=== PATIENT | female | born 1970 | race African-American/Black ===

== ENCOUNTER 2018-03-05 16:20 | Outpatient (CLI) | payer OTHER | END 2018-03-05 16:21 | disposition home or self-care (01) | LOC: BICMAMMO 16:20 | PROVIDERS: ATTEND Family Medicine | DX: Z12.31 Encounter for screening mammogram for malignant neoplasm of breast (principal); Z80.3 Family history of malignant neoplasm of breast | CPT/HCPCS: 77063; 77067 ==

== ENCOUNTER 2018-03-10 15:50 | Outpatient (CLI) | payer OTHER ==
[2018-03-10 16:21] LABS: #Basophils 0.1 thou/uL (0.0-0.2); #Eosinphils 0.1 thou/uL (0.0-0.7); #Lymphocytes 3.1 thou/uL (1.20-3.40); #Monocytes 0.5 thou/uL (0.11-0.59); #Neutrophils 3.6 thou/uL (1.40-6.50); %Basophils 0.9 % (0.0-1.0); %Lymphocytes 42.3 % (21.0-51.0); %Monocytes 6.3 % (0.0-10.0); %Neutrophils 49.5 % (42.0-75.0); Hemoglobin 12.2 g/dL (12.0-16.0); Mean Corpuscular Hemoglobin 30.9 pg (27.0-31.0); Mean Corpuscular Volume 96.5 fl (81.0-99.0); Mean Platelet Volume 6.2 fL (7.4-10.4); Platelet Count 343 thou/uL (130-400); RBC Distribution Width 12.4 % (11.5-14.5); Red Blood Cell (RBC) Count 3.94 mill/uL (4.20-5.40); White Blood Cell (WBC) Count 7.3 thou/uL (4.8-10.8)
[2018-03-10 16:42] LABS: Anion Gap 10 mmol/L (10-20); BUN (Urea Nitrogen) 11 mg/dL (7.0-18.7); Calc. Creatinine Clearance 0 mL/min (70-130); Calcium 9.6 mg/dL (7.8-10.44); Carbon Dioxide 32 mmol/L (22-29); Chloride 100 mmol/L (98-107); Estimated GFR-MDRD Greater than 90; Glucose 108 mg/dL (70-105); Potassium 3.9 mmol/L (3.5-5.1); Sodium 138 mmol/L (136-145)
== END 2018-03-10 15:51 | disposition home or self-care (01) ==
LOC: LABBT 15:50
PROVIDERS: ATTEND Surgery
DX: Z01.818 Encounter for other preprocedural examination (principal); C20 Malignant neoplasm of rectum
CPT/HCPCS: 80048; 85025

== ENCOUNTER 2018-03-12 11:15 | Outpatient (CLI) | payer OTHER ==
--- NOTE | 2018-03-12 13:33 | PET ---
RADIONUCLIDE PET SCAN WITH CT ATTENUATION CORRECTION: HISTORY: Rectal cancer. Initial staging. FINDINGS: No comparison available. There is physiologic uptake of radiotracer throughout the enteric system and along each urinary tract . No abnormal areas of uptake are seen within the liver. Nondiagnostic CT attenuation correction does show gallbladder to be surgically absent. 0.3 cm calculus is present within a nondilated erin at th e superior pole right kidney. Lobular fluid density lesion just inferior to the left renal vein does not have an aggressive appearance and does not show hypermetabolic activity. Scattered diverticula arise from the colon without adjacent inflammation. No abnormal uptake is seen along the rectal wall with minimal bowel material apparent. IMPRESSION: 1. No scintigraphic evidence of metastatic disease. Primary rectal lesion is not apparent scintigrap hically. 2. Small, nonobstructing right renal calculus. 3. Mild diverticulosis. No evidence of diverticulitis. POS: [facility]
== END 2018-03-12 11:16 | disposition home or self-care (01) ==
LOC: PET 11:15
PROVIDERS: ATTEND Internal Medicine Hematology & Oncology
DX: C20 Malignant neoplasm of rectum (principal); K57.90 Diverticulosis of intestine, part unspecified, without perforation or abscess without bleeding; N20.0 Calculus of kidney
CPT/HCPCS: 78815; A9552

== ENCOUNTER → 2018-03-12 | Day surgery (SDC) | payer OTHER ==
[2018-03-10 16:06] VITALS: BMI 52.8
[~2018-03-12] MED LIST: Bupivacaine/Epinephrine 0.25% 30 ML VIAL ONE; Clindamycin/D5W 900 mg/50 ml Premix Bag ONE; Dexamethasone 20 MG/5 ML VIAL ONE; Fentanyl 100 MCG/2 ML VIAL ONE; Levofloxacin 500 mg/D5W 100 ml Premix Bag ONE; Lidocaine 1% PF 5 ML VIAL ONE; Lidocaine 2% 10 ML INJ ONE; Midazolam HCl 2 mg/2 ml Vial ONE; PHENYLEPHRINE-NS 100 MCG/ML 10 ML SYRINGE ONE; PROPOFOL 200 MG/20 ML VIAL ONE
--- NOTE | 2018-03-12 16:30 | PDOC.OP ---
Operative Note - Operative Note Operative Note: PROCEDURE: Left internal jugular MediPort placement with ultrasound and fluoroscopic guidance SURGEON: Lindsay Espinoza M.D. DATE OF PROCEDURE: 03/12/2018 PREOPERATIVE DIAGNOSIS: Squamous cell carcinoma of the rectum POSTOPERATIVE DIAGNOSIS: Squamous cell carcinoma of the rectum HISTORY: Patient is diagnosed with squamous cell rectal cancer. Chemotherapy has been recommended and the oncologist has requested MediPort placement for this. OPERATIVE PROCEDURE IN DETAIL: After informed consent was obtained and appropriate preoperative antibiotics were administered, the patient was taken to the operating room and placed in supine position and monitored anesthesia care was administered. The patient was then placed in Trendelenburg position and the subclavian vein attempted to be accessed by the standard approach. However, no flow was obtained. The decision was made to place the Mediport in the left internal jugular position. An ultrasound probe was sterilely draped and used to identify the patent compressible internal jugular vein. This was accessed easily on the first attempt under direct ultrasound guidance with excellent flow of dark venous non-pulsatile blood. A wire threaded easily and was confirmed to be in the superior vena cava by fluoroscopy. Additional local anesthesia was infused to the skin and subcutaneous of the chest and neck. The skin incision was made and a subcutaneous pocket developed inferiorly. A Mediport was obtained and confirmed to fit in the subcutaneous pocket. This was secured inferiorly to the pectoralis fascia with a Prolene suture, which was clamped, but not tied. The tubing was then tunneled from the port site to the left IJ access site. The dilator and sheath were then placed over the wire and the dilator and wire removed leaving the sheath in place. The clamped MediPort tubing was tunneled through the sheath, which was then split and removed leaving the MediPort tubing in place. The tubing was adjusted until the tip was confirmed by fluoroscopy to be in the superior vena cava just above the atrium. The tubing was clamped at the skin level and cut and the tubing secured to the port, which was then placed in the subcutaneous pocket. The previously placed suture was secured and two additional sutures were placed to fix the port in place within the pocket. The port was aspirated with the Berg needle and had excellent flow of dark venous non-pulsatile blood and easily flushed without resistance. The subcutaneous tissues were closed with a running Monocryl suture, following which the skin was closed with a running subcuticular Monocryl suture. The right IJ access site was also closed with Monocryl suture. Dermabond dressings were placed and the hub was again accessed through the skin and confirmed to easily aspirate and easily flush. The course of the catheter was confirmed by fluoroscopy to be smooth with the tip appropriately located in the superior vena cava. The patient was taken her back to the day stay unit in good condition. Estimated blood loss was minimal. There were no complications. There were no specimens.
--- NOTE | 2018-03-12 16:31 | RAD ---
CHEST ONE VIEW: 03/12/18 HISTORY: Mediport placement. FINDINGS: The cardiac silhouette is magnified by projection. Pulmonary vasculature are unremarkable. Mediastinu m is midline. Tip of a left internal jugular central venous catheter overlies the midline at the expe cted location of the left brachiocephalic vein. No evidence of pneumothorax. IMPRESSION: Left subclavian Mediport is in good radiographic position. POS: [facility]
== END ==
LOC: SDC 13:06
PROVIDERS: ATTEND Surgery
PROC: 02HV33Z Insertion of Infusion Device into Superior Vena Cava, Percutaneous Approach (ICD-10-PCS; principal; 2018-03-12)
PROC: B518ZZA Fluoroscopy of Superior Vena Cava, Guidance (ICD-10-PCS; principal; 2018-03-12)
DX: C20 Malignant neoplasm of rectum (principal); E03.9 Hypothyroidism, unspecified; F32.9 Major depressive disorder, single episode, unspecified; Z88.0 Allergy status to penicillin; Z88.8 Allergy status to other drugs, medicaments and biological substances; Z88.5 Allergy status to narcotic agent; Z91.040 Latex allergy status; Z79.899 Other long term (current) drug therapy; Z98.890 Other specified postprocedural states
CPT/HCPCS: 71045; C1788; J1100; J1642; J1956; J2001; J2250; J2704; J3010; J3490

== ENCOUNTER 2018-04-29 12:02 | Inpatient (IN) | payer OTHER ==
[2018-04-29] MEDS ORDERED: Acetaminophen 500 MG TAB ONE ×2 (12:19→16:27)
[2018-04-29 13:05] LABS: Hemoglobin 9.3 g/dL (12.0-16.0); Mean Corpuscular HGB CONC 33.4 g/dL (32.0-36.0); Mean Corpuscular Hemoglobin 32.9 pg (27.0-31.0); Mean Corpuscular Volume 98.7 fL (78.0-98.0); Mean Platelet Volume 6.9 fL (7.4-10.4); PLT Morphology Comment Appears Decreased; Platelet Count 55 thou/uL (130-400); RBC Distribution Width 14.7 % (11.5-14.5); RBC Morphology Normal; Red Blood Cell (RBC) Count 2.82 mill/uL (4.20-5.40); White Blood Cell (WBC) Count 0.4 thou/uL (4.8-10.8)
[2018-04-29 13:11] LABS: ALT (SGPT) 28 U/L (8-55); AST (SGOT) 26 U/L (5-34); Albumin 3.9 g/dL (3.5-5.0); Alkaline Phosphatase 89 U/L (40-150); Anion Gap 14 mmol/L (10-20); BUN (Urea Nitrogen) 9 mg/dL (7.0-18.7); Bilirubin, Total 1.8 mg/dL (0.2-1.2); Calc. Creatinine Clearance 0 mL/min (70-130); Calcium 9.4 mg/dL (7.8-10.44); Carbon Dioxide 27 mmol/L (22-29); Chloride 100 mmol/L (98-107); Estimated GFR-MDRD Greater than 90; Globulin 3.4 g/dL (2.4-3.5); Glucose 157 mg/dL (70-105); Potassium 3.8 mmol/L (3.5-5.1); Protein, Total 7.3 g/dL (6.0-8.3); Sodium 137 mmol/L (136-145)
--- NOTE | 2018-04-29 13:17 | RAD ---
PORTABLE CHEST: History: Fever. FINDINGS: The lungs are clear. No infiltrate. Heart and mediastinum unremarkable. A Mediport catheter has tip o verlying the left brachiocephalic near the SVT junction. IMPRESSION: No acute abnormality. POS: [facility]
[2018-04-29] MEDS ORDERED: Cefepime 2 GM in Sodium Chloride 0.9% 100 ML IVPB SCH (13:45)
[2018-04-29 13:54] LABS: Bilirubin Negative (Negative); Blood, Urine Large (Negative); Clarity CLEAR (Clear); Glucose, Urine (Dipstick) Negative (Negative); Leukocyte Small (Negative); Protein, Urine (Dipstick) Trace mg/dL (Neg-Trace); Specific Gravity, Urine 1.009 (1.002-1.036); pH, Urine 7.5 (5.0-9.0)
[2018-04-29 13:57] LABS: Bacteria/HPF None Seen HPF (None Seen); Hyaline Casts/LPF 0-3 HYALINE CAST LPF (0-3 Hyaline); Pathc Cast-AUWi Flag 0.43 (0-2.49); Squamous Epithelial None Seen HPF (0-3)
[2018-04-29] MEDS ORDERED: Promethazine HCl 25 MG/ML VIAL ONE (14:08)
[2018-04-29 14:13] LABS: Nitrite Unable to Interpret (Negative); RBC/HPF GREATER THAN 50-TNTC HPF (0-3)
--- NOTE | 2018-04-29 15:10 | PDOC.FPRHP ---
- History of Present Illness Chief Complaint: fever History of Present Illness: 47/F pt presents with complaint of fever, body aches, chills, nausea, diarrhea, abdominal pain, and dysuria since this morning. PT has a hx of colorectal cancer , recently had radiation on Friday (Was suppose to have 2 more radiation doses but due to pain was not able to undergo treatment), last chemo was 04/20/18 ( four days of treatment). Pt denies blood in stool, vomiting, back pain but reports a lower back "soreness". States she has had some vaginal bleeding and blood in her urine; last radiation was performed transvaginally which required a vaginal dilator. Patient reports fever of 99.6 last night. Has been continuing wound care treatments at home. Has been concerned that due to loose stools areas near her perirectal areas could be infected. Last night she also noticed abdominal pain around her belly button. This morning did not have much of an appetite. Took a shower noticed severe chills and took her temp which was 101. Other associated symptoms have included dysuria for the past 2 wks or more. Last week was placed on cipro for 7 days. Dysuria has unfortunately continued. Increase nocturia. Reports bloody urine since Friday. Patient unsure if specific to urine or vaginal bleeding. Body aches for the past 2 days. Noticed numbness and tingling to lower extremities over the last week as well, R>L. - Allergies/Adverse Reactions Allergies Allergy/AdvReac Type Severity Reaction Status Date / Time acetaminophen [From [place]] Allergy Intermediate ITCHING Verified 03/10/18 16:00 hydrocodone [From [place]] Allergy Intermediate ITCHING Verified 03/10/18 16:00 latex Allergy Intermediate ITCHING Verified 03/10/18 16:00 Penicillins Allergy Rash Verified 03/10/18 16:00 - Home Medications Medication Instructions Recorded Confirmed Type Cholecalciferol (Vitamin D3) 5,000 unit PO QAM 01/20/18 04/29/18 History [Vitamin D3] DULoxetine [Cymbalta] 60 mg PO HS 01/20/18 04/29/18 History Levothyroxine Sodium [Synthroid] 88 mcg PO QAM 01/20/18 04/29/18 History Tolterodine Tartrate [Detrol LA] 4 mg PO HS 01/20/18 04/29/18 History Ubidecarenone/Vitamin E Mixed 1 each PO HS 01/20/18 04/29/18 History [Qzs28-Oma E 200 mg-20 Unit Sfg] Calcium Carbonate [Calcium] 600 mg PO DAILY 03/10/18 04/29/18 History Lactobacillus Combo No.10 1 capsule PO DAILY 03/10/18 04/29/18 History [Probiotic] Melatonin 10 mg PO HS PRN 04/29/18 04/29/18 History - History PMHx: Depression, Incontinence, Hypothyroidism, Iron def anemia, Squamous cell carcinoma of the rectum, Cancer related pain, PSHx: Hysto 2003 (Fibroid uterus), Zoe 2006, Mediport 04/2018, section x2 FHx: Aunt with Breast Cancer Social: Denies tobacco, alcohol, and drug use. Lives with family. . Works at [employer] but recently retired on Friday. - Review of Systems General: reports: fever/chills, weight/appetite/sleep changes, fatigue Eyes: denies: eye pain, vision changes ENT: denies: nasal congestion, rhinorrhea Respiratory: denies: cough, congestion, shortness of breath, exercise intolerance Cardiovascular: denies: chest pain, palpitation, edema, paroxysmal nocturnal dyspnea, orthopnea Gastrointestinal: reports: nausea, diarrhea, abdominal pain. denies: vomiting, constipation, GI bleeding Genitourinary: reports: incontinence, dysuria, discharge (bloody) Skin: reports: other (radiation wounds to pelvis) Musculoskeletal: reports: swelling. denies: pain, tenderness, stiffness, arthritis/arthralgias Neurological: reports: numbness. denies: syncope, seizure, weakness Psychological: reports: anxiety, depression - Vital signs BP: 110/46 HR: 111 RR: 23 Tmax: 101.6 Pox: 98% on RA Wt: 122 kg - Physical Exam Constitutional: NAD, awake, alert and oriented, other (obese) HEENT: normocephalic and atraumatic, PERRLA, EOMI, conjunctiva clear, no scleral icterus, grossly normal hearing, other (mucous membranes dry) Neck: supple, trachea midline Heart: RRR, normal S1/S2, other (2/6 systolic murmur) Lungs: CTAB, no respiratory distress, good air movement, no rales/rhonchi, no wheezing, no retractions Abdomen: soft, non-tender, bowel sounds present, no masses/distention Musculoskeletal: normal structure, normal tone, ROM grossly normal Neurological: no focal deficit, CN II-XII intact, other (subjective decreased sensation RLE compared to left) Skin: no jaundice, other (entensive radiation related skin breakdown below pannus and in suprapubic and vulvar areas) Heme/Lymphatic: no unusual bruising or bleeding, no purpura Psychiatric: normal mood and affect, good judgment and insight, intact recent and remote memory FMR H&P: Results - Labs Result Diagrams: 04/29/18 12:46 04/29/18 12:46 Lab results: WBC 0.4 thou/uL (4.8-10.8) L* 04/29/18 12:46 Hgb 9.3 g/dL (12.0-16.0) L 04/29/18 12:46 Hct 27.8 % (36.0-47.0) L 04/29/18 12:46 MCV 98.7 fL (78.0-98.0) H 04/29/18 12:46 Plt Count 55 thou/uL (130-400) L 04/29/18 12:46 Sodium 137 mmol/L (136-145) 04/29/18 12:46 Potassium 3.8 mmol/L (3.5-5.1) 04/29/18 12:46 Chloride 100 mmol/L (98-107) 04/29/18 12:46 Carbon Dioxide 27 mmol/L (22-29) 04/29/18 12:46 BUN 9 mg/dL (7.0-18.7) 04/29/18 12:46 Creatinine 0.79 mg/dL (0.6-1.1) 04/29/18 12:46 Glucose 157 mg/dL (70-105) H 04/29/18 12:46 Lactic Acid 2.1 mmol/L (0.5-2.2) 04/29/18 12:46 Calcium 9.4 mg/dL (7.8-10.44) 04/29/18 12:46 Total Bilirubin 1.8 mg/dL (0.2-1.2) H 04/29/18 12:46 AST 26 U/L (5-34) 04/29/18 12:46 ALT 28 U/L (8-55) 04/29/18 12:46 Alkaline Phosphatase 89 U/L (40-150) 04/29/18 12:46 B-Natriuretic Peptide 14.2 pg/mL (0-100) 04/29/18 12:46 Serum Total Protein 7.3 g/dL (6.0-8.3) 04/29/18 12:46 Albumin 3.9 g/dL (3.5-5.0) 04/29/18 12:46 Urine Ketones Negative mg/dL (Negative) 04/29/18 13:25 Urine Blood Large (Negative) H 04/29/18 13:25 Urine Nitrite Unable to Interpret (Negative) 04/29/18 13:25 Ur Leukocyte Esterase Small (Negative) H 04/29/18 13:25 Urine RBC GREATER THAN 50-TNTC HPF (0-3) H 04/29/18 13:25 Urine WBC 7-10 HPF (0-3) H 04/29/18 13:25 Ur Squamous Epith Cells None Seen HPF (0-3) 04/29/18 13:25 Urine Bacteria None Seen HPF (None Seen) 04/29/18 13:25 FMR H&P: A/P - Problem List (1) Chemotherapy induced neutropenia Current Visit: Yes Status: Acute Priority: High Code(s): D70.1 - AGRANULOCYTOSIS SECONDARY TO CANCER CHEMOTHERAPY; T45.1X5A - ADVERSE EFFECT OF ANTINEOPLASTIC AND IMMUNOSUP DRUGS, INIT (2) Sepsis Current Visit: Yes Status: Acute Code(s): A41.9 - SEPSIS, UNSPECIFIED ORGANISM (3) Urinary tract infection Current Visit: Yes Status: Acute Qualifiers: Urinary tract infection type: acute cystitis Hematuria presence: with hematuria Qualified Code(s): N30.01 - Acute cystitis with hematuria (4) Squamous cell carcinoma of rectum Current Visit: Yes Status: Acute Priority: High Code(s): C20 - MALIGNANT NEOPLASM OF RECTUM (5) Thrombocytopenia Current Visit: Yes Status: Acute Priority: High Code(s): D69.6 - THROMBOCYTOPENIA, UNSPECIFIED (6) Hypothyroidism Current Visit: Yes Status: Acute Code(s): E03.9 - HYPOTHYROIDISM, UNSPECIFIED Qualifiers: Hypothyroidism type: unspecified Qualified Code(s): E03.9 - Hypothyroidism , unspecified (7) Hyperbilirubinemia Current Visit: Yes Status: Acute Code(s): E80.6 - OTHER DISORDERS OF BILIRUBIN METABOLISM (8) Urinary incontinence Current Visit: Yes Status: Acute Code(s): R32 - UNSPECIFIED URINARY INCONTINENCE Qualifiers: Urinary Incontinence type: mixed stress and urge incontinence Qualified Code(s): N39.46 - Mixed incontinence (9) Macrocytic anemia Current Visit: Yes Status: Acute Code(s): D53.9 - NUTRITIONAL ANEMIA, UNSPECIFIED - Plan (1) Chemotherapy induced neutropenic sepsis: Admit to telemetry due to continued sinus tachycardia, monitor VS carefully overnight. Strict I's and O' s. Neutropenic precautions. Trend white count and obtain manual differential in AM. Continue empiric antibiotic therapy with Vanc and Cefepime until source can be confirmed with culture results. Suspect urinary source. Patient without any known heart dysfunction, cont. aggressive IVFs. (2) Urinary tract infection: abx as above, urine culture pending (3) Stage I squamous cell carcinoma of rectum: s/p incomplete chemoradiation; will notify Dr. Aguirre that patient here in AM (4) Thrombocytopenia: SCDs for now, will discuss ppx Lovenox tmrw with patient; monitor for bleeding. (5) Hypothyroidism: check TSH, continue home Levothyroxine (6) Hyperbilirubinemia: likely related to sepsis process, check fractionated bili in AM if still elevated. (7) Urinary incontinence: continue Detrol-LA (8) Macrocytic anemia: possibly mixed etiology; pt has been started on iron supplementation outpt, will continue. (9) Depression: continue Cymbalta FMR H&P: Upper Level - Plan Date/Time: 04/29/18 1507 Attending Addendum - Attending Addendum Date/Time: 04/29/18 1650 I personally evaluated the patient and discussed the management with Dr. Stevens I agree with the History, Examination, Assessment and Plan documented above with any addition or exceptions noted below. 47 yo female with neutropenic fever with urinary source admitted for emperic antibiotics. Nielson cultures obtained. Continue Vanc and Cefepime until sensitivities result. Symptomatic treatment added. Neutropenia precautions placed. Will notify Onc - Dr. Aguirre. Trend labs. Obtain bilirubin fraction. Tele admit due to sinus tachycardia likely secondary. Manuelito
[2018-04-29] MEDS ORDERED: Ibuprofen 800 MG TAB PO PRN (17:33)
[2018-04-29 17:43] VITALS: BMI 44.7
[2018-04-29] MEDS ORDERED: Ondansetron HCl/PF 4 MG/2 ML Vial IVP PRN (17:44)
[2018-04-29] MEDS ORDERED: Ondansetron ODT 4 MG TAB PO PRN (17:44)
[2018-04-29] MEDS: Sodium Chloride 0.9% 1,000 ML IV SCH (19:12)
[2018-04-29] MEDS ORDERED: Melatonin 3 MG TAB PO PRN (19:15)
[2018-04-29] MEDS ORDERED: hydrOXYzine 25 MG TAB PO PRN (19:26)
[2018-04-29] MEDS ORDERED: diphenhydrAMINE 50 MG CAP PO PRN (19:28)
[2018-04-29] MEDS: Ubidecarenone 50 MG CAP PO SCH (20:44)
[2018-04-29] MEDS: Diphenoxylate HCl/Atropine Tablet PO PRN (20:45)
[2018-04-29] MEDS: TROSPIUM 20 MG TABLET PO SCH (20:45)
[2018-04-29] MEDS: Famotidine 20 MG TAB PO SCH (20:45)
[2018-04-29] MEDS: DULoxetine 60 MG CAP PO SCH (20:45)
[2018-04-29] MEDS ORDERED: Tolterodine Tartrate LA 4 MG CAP PO SCH (21:00)
[2018-04-29] MEDS ORDERED: Acetaminophen 325 MG TAB PO PRN (21:12)
[2018-04-29] MEDS: traMADol HCl 50 MG TAB PO PRN (21:38)
[2018-04-29] MEDS: Cefepime 2 GM in Sodium Chloride 0.9% 100 ML IVPB SCH (23:46)
[2018-04-30] MEDS ORDERED: Vancomycin HCl 1.75 GM in Sodium Chloride 0.9% 250 ML 300 ML IVPB SCH (01:00)
[2018-04-30] MEDS: Vancomycin HCl 1.75 GM in Sodium Chloride 0.9% 500 ML IVPB SCH ×4 (01:40→23:03)
[2018-04-30] MEDS: Sodium Chloride 0.9% 1,000 ML IV SCH ×5 (01:40→21:20)
[2018-04-30] MEDS: Levothyroxine Sodium 88 MCG TAB PO SCH (05:33)
[2018-04-30 06:04] LABS: ALT (SGPT) 23 U/L (8-55); AST (SGOT) 20 U/L (5-34); Albumin 3.3 g/dL (3.5-5.0); Alkaline Phosphatase 72 U/L (40-150); Anion Gap 10 mmol/L (10-20); BUN (Urea Nitrogen) 6 mg/dL (7.0-18.7); Calc. Creatinine Clearance 198 mL/min (70-130); Calcium 8.3 mg/dL (7.8-10.44); Carbon Dioxide 24 mmol/L (22-29); Chloride 106 mmol/L (98-107); Estimated GFR-MDRD Greater than 90; Globulin 2.7 g/dL (2.4-3.5); Glucose 113 mg/dL (70-105); Potassium 3.4 mmol/L (3.5-5.1); Sodium 137 mmol/L (136-145)
--- NOTE | 2018-04-30 06:32 | PDOC.FM ---
- Subjective Subjective: Ms. Nguyen is complaining of significant dysuria this morning. She otherwise feels well and denies any palpitations or chest pain. She reports she would like to have lomotil to help prevent diarrhea she was having before she takes any additional medication. - Objective MAR Reviewed: Yes Vital Signs & Weight: Vital Signs (12 hours) Temp Pulse Resp BP Pulse Ox 04/30/18 04:00 98.8 F 114 H 22 H 110/56 L 98 04/29/18 23:49 98.7 F 111 H 20 111/53 L 94 L 04/29/18 20:40 102.4 F H 113 H 18 118/58 L 96 Weight Weight 122 kg I&O: 04/28/18 04/29/18 04/30/18 06:59 06:59 06:59 Intake Total 3160 Output Total 700 Balance 2460 Result Diagrams: 04/30/18 04:56 04/30/18 04:56 <Daniella Perez E - Last Filed: 04/30/18 11:43> - Objective Vital Signs & Weight: Vital Signs (12 hours) Temp Pulse Resp BP Pulse Ox 04/30/18 07:29 100.0 F H 109 H 16 118/58 L 97 04/30/18 04:00 98.8 F 114 H 22 H 110/56 L 98 Weight Admit Weight 122 kg Weight 122 kg I&O: 04/29/18 04/30/18 05/01/18 06:59 06:59 06:59 Intake Total 3160 Output Total 700 Balance 2460 Result Diagrams: 04/30/18 04:56 04/30/18 04:56 <Giacomo Addison - Last Filed: 04/30/18 12:53> Phys Exam - Physical Examination appears uncomfortable HEENT: moist MMs, sclera anicteric Neck: supple Respiratory: no wheezing, clear to auscultation bilateral Cardiovascular: RRR 2/6 systolic murmur on R sternal border Gastrointestinal: soft, positive bowel sounds suprapubic tenderness Musculoskeletal: no edema Neurological: non-focal, moves all 4 limbs Psychiatric: normal affect, A&O x 3 Skin: normal turgor Deviation from normal: see wound care photos re: vaginal atrophy <Daniella Perez E - Last Filed: 04/30/18 11:43> Dx/Plan (1) Chemotherapy induced neutropenia Code(s): D70.1 - AGRANULOCYTOSIS SECONDARY TO CANCER CHEMOTHERAPY; T45.1X5A - ADVERSE EFFECT OF ANTINEOPLASTIC AND IMMUNOSUP DRUGS, INIT Status: Acute (2) Hyperbilirubinemia Code(s): E80.6 - OTHER DISORDERS OF BILIRUBIN METABOLISM Status: Acute (3) Hypothyroidism Code(s): E03.9 - HYPOTHYROIDISM, UNSPECIFIED Status: Acute QualifierTitle: Hypothyroidism type: unspecified Qualified Code(s): E03.9 - Hypothyroidism, unspecified (4) Macrocytic anemia Code(s): D53.9 - NUTRITIONAL ANEMIA, UNSPECIFIED Status: Acute (5) Sepsis Code(s): A41.9 - SEPSIS, UNSPECIFIED ORGANISM Status: Acute (6) Squamous cell carcinoma of rectum Code(s): C20 - MALIGNANT NEOPLASM OF RECTUM Status: Acute (7) Thrombocytopenia Code(s): D69.6 - THROMBOCYTOPENIA, UNSPECIFIED Status: Acute (8) Urinary tract infection Status: Acute QualifierTitle: Urinary tract infection type: acute cystitis Hematuria presence: with hematuria Qualified Code(s): N30.01 - Acute cystitis with hematuria - Plan Plan: 47 yo F with SQCC of rectum here with neutropenic sepsis likely 2/2 acute cystitis: 1. Chemotherapy induced neutropenia complicated by sepsis - Continue to monitor tachycardia. Strict I's and O's - Neutropenic precautions - Trend white count and obtain manual differential, pending - Continue empiric antibiotic therapy with Vanc and Cefepime until source can be confirmed with culture results - Suspect urinary source if any able to be identified - Patient without any known heart dysfunction, cont. aggressive IVFs - Dr. Aguirre consulted, appreciate recommendations regarding any further studies indicated to work-up infectious process 2. Tachycardia - Likely 2/2 anemia - Will transfuse 1u pRBC, discussed risks and benefits with patient 3. Urinary tract infection - Abx as above, urine culture pending 4. 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 Aguirre aware patient is here and Radha Barrera to see this morning. 5. Thrombocytopenia - SCDs for now, monitor for bleeding. 6. Hypothyroidism - check TSH, continue home Levothyroxine 7. Hyperbilirubinemia - likely related to sepsis process, check fractionated bili if this morning lab is still elevated 8. Urinary incontinence - continue Detrol-LA (patient's home medication) 9. Macrocytic anemia - possibly mixed etiology; pt has been started on iron supplementation outpt, will continue. - Will transfuse 1u pRBC 10. Depression: continue Cymbalta PPX: SCDs, ambulation <Daniella Perez - Last Filed: 04/30/18 11:43> Attending Addendum - Attending Addendum Date/Time: 04/30/18 [id number] I personally evaluated the patient and discussed the management with Dr. Perez. I agree with the History, Examination, Assessment and Plan documented above with any addition or exceptions noted below. Consideration for pelvic CT and cardiac echo. Infection source appears to be urologic but UA/culture are not entirely convincing. <Giacomo Addison - Last Filed: 04/30/18 12:53>
[2018-04-30 07:04] LABS: Hemoglobin 7.4 g/dL (12.0-16.0); Mean Corpuscular HGB CONC 33.5 g/dL (32.0-36.0); Mean Corpuscular Hemoglobin 33.4 pg (27.0-31.0); Mean Corpuscular Volume 99.9 fL (78.0-98.0); Mean Platelet Volume 7.8 fL (7.4-10.4); Platelet Count 41 thou/uL (130-400); RBC Distribution Width 14.9 % (11.5-14.5); White Blood Cell (WBC) Count 0.3 thou/uL (4.8-10.8)
[2018-04-30] MEDS: Cefepime 2 GM in Sodium Chloride 0.9% 100 ML IVPB SCH ×4 (07:33→22:03)
[2018-04-30] MEDS: Diphenoxylate HCl/Atropine Tablet PO PRN ×2 (08:31→22:40)
[2018-04-30] MEDS ORDERED: Prevnar 13-Val Conj/PF 0.5 ML SYRINGE IM ONE (09:00)
[2018-04-30] MEDS ORDERED: Enoxaparin Sodium 40 MG/0.4 ML SYRINGE SC SCH (09:00)
[2018-04-30] MEDS: Phenazopyridine HCl 97.5 MG TABLET PO SCH ×3 (10:23→17:10)
[2018-04-30] MEDS: Calcium Carbonate 600 MG TAB PO SCH (10:23)
[2018-04-30] MEDS: Famotidine 20 MG TAB PO SCH ×2 (10:23→22:03)
[2018-04-30] MEDS: TROSPIUM 20 MG TABLET PO SCH (10:23)
--- NOTE | 2018-04-30 13:19 | CON ---
DATE OF CONSULTATION: 04/30/2018 REASON FOR CONSULTATION: Neutropenia. HISTORY OF PRESENT ILLNESS: Ms. Nguyen is a very pleasant 47-year-old -Swedish female, who re cently completed chemotherapy of 5-FU and mitomycin on 04/17/2018. She also completed concurrent rad iation on 04/2018. She began to feel poorly on Friday with increasing perineal pain. She de veloped a fever and presented to the emergency room for evaluation. Her temperature at presentation was 102.4. Her white count was 400. She was admitted for neutropenic fever. She was pancultured. She has been started on antibiotics. The patient's chemo regimen consists of 2 cycles of 5-FU and mi tomycin. The first one is the beginning of radiation and a second one is at the end. She was neutro penic for close to 2 weeks with the first cycle. She had a mucositis during that time, but denies an y mouth ulcers currently. She does have swelling and dysuria secondary to radiation. Her last bowel movement was yesterday. She is tolerating oral intake well. She has also been on Pyridium for blad long pain. PAST MEDICAL HISTORY: 1. Squamous cell carcinoma of the rectum. 2. Obesity. 3. Anxiety and depression. 4. Hypothyroidism. 5. Vitamin D deficiency. 6. History of gallstones. PAST SURGICAL HISTORY: 1. x2. 2. Partial hysterectomy. 3. Cholecystectomy. 4. Left shoulder surgery. 5. Colonoscopy. ALLERGIES: LATEX, NORCO, and PENICILLIN. HOME MEDICATIONS: 1. Biotin daily. 2. Calcium daily. 3. CoQ10 daily. 4. Cranberry daily. 5. Cymbalta 60 mg daily. 6. Detrol LA daily. 7. Iron b.i.d. 8. Probiotic daily. 9. Synthroid 88 mcg daily. FAMILY HISTORY: Mother had gallstones. SOCIAL HISTORY: , has 2 children, lives with her daughter. No alcohol, tobacco, or illicit drug use. REVIEW OF SYSTEMS: CONSTITUTIONAL: Positive for fever, chills, night sweats. EYES: No blurred or double vision. ENT: No pain, hoarseness, sore throat, or dysphagia. CARDIOVASCULAR: No chest pain, palpitations, syncope. RESPIRATORY: No shortness of breath, dyspnea on exertion or orthopnea. GASTROINTESTINAL: No nausea, vomiting, or constipation. Positive for occasional abdominal pain and diarrhea. GENITOURINARY: Positive for dysuria or hematuria. MUSCULOSKELETAL: No joint or back pain. SKIN: No rash or pruritus. HEMATOLOGICAL: Positive for mild vaginal bleeding, no bruising or clotting. NEUROLOGIC: Denies weakness, headache, numbness, tingling or seizure activity. PSYCHIATRIC: No anxiety or depression. PHYSICAL EXAMINATION: VITAL SIGNS: Temperature is 100.0, pulse is 109, respiratory rate 16, BP is 118/58. She is 97% on r oom air. GENERAL: Well-developed, well-nourished female in no acute distress. HEENT: Normocephalic, atraumatic. Pupils equal and reactive to light. NECK: Supple. HEART: Regular rate and rhythm. She does have a 2/6 murmur. LUNGS: Clear. ABDOMEN: Obese, nontender, bowel sounds are positive. EXTREMITIES: No clubbing, cyanosis or edema. SKIN: No rash. HEMATOLOGIC: No petechia or purpura. NEUROLOGICAL: Nonfocal. PSYCHIATRIC: The patient is alert and oriented and appropriate. PERTINENT LABORATORY AND X-RAYS: Current WBCs are 300, hemoglobin 7.4, hematocrit 22.0, platelet cou nt is 41,000. Sodium is 137, potassium 3.4, chloride 106, CO2 is 24, BUN is 6, creatinine 0.67. Lac tic acid is 2, calcium is 8.3, bilirubin is 2.0, AST 20, ALT is 23, alkaline phosphatase is 72, serum total protein is 6, albumin 3.3, globulin 2.7. Chest x-ray showed no acute abnormality. ASSESSMENT: 1. Squamous cell carcinoma of the rectum, status post chemoradiation. 2. Pancytopenia secondary to #1. 3. Neutropenic fever. DISCUSSION: The patient has been pancultured and started on antibiotics of cefepime and vancomycin. We will continue these antibiotics for several days unless the cultures return positive, can adjust them accordingly. We will monitor her CBC. She is likely to be neutropenic for many days with mitom ycin. She cannot have a growth stimulating factor. She just completed radiation. We will provide s upportive care. Thank you for the consult.
[2018-04-30] MEDS: traMADol HCl 50 MG TAB PO PRN ×2 (14:41→23:08)
[2018-04-30] MEDS ORDERED: Simethicone Chewable 80 MG TAB PO PRN (16:04)
[2018-04-30] MEDS: Ubidecarenone 50 MG CAP PO SCH (22:03)
[2018-04-30] MEDS: DULoxetine 60 MG CAP PO SCH (22:04)
[2018-04-30] MEDS ORDERED: TOLTERODINE 4 MG PO SCH (22:45)
[2018-05-01] MEDS: Cefepime 2 GM in Sodium Chloride 0.9% 100 ML IVPB SCH ×3 (05:04→20:22)
[2018-05-01] MEDS: Levothyroxine Sodium 88 MCG TAB PO SCH (05:04)
[2018-05-01] MEDS: Vancomycin HCl 1.75 GM in Sodium Chloride 0.9% 500 ML IVPB SCH ×4 (05:37→23:33)
[2018-05-01 06:04] LABS: Anion Gap 10 mmol/L (10-20); BUN (Urea Nitrogen) 5 mg/dL (7.0-18.7); Calc. Creatinine Clearance 221 mL/min (70-130); Calcium 8.5 mg/dL (7.8-10.44); Carbon Dioxide 25 mmol/L (22-29); Chloride 108 mmol/L (98-107); Estimated GFR-MDRD Greater than 90; Glucose 104 mg/dL (70-105); Potassium 3.1 mmol/L (3.5-5.1); Sodium 140 mmol/L (136-145)
[2018-05-01 07:02] LABS: Bilirubin, Direct 0.7 mg/dL (0.1-0.3); Bilirubin, Total 1.7 mg/dL (0.2-1.2)
[2018-05-01] MEDS: Diphenoxylate HCl/Atropine Tablet PO PRN ×2 (07:42→17:19)
[2018-05-01] MEDS: Sodium Chloride 0.9% 1,000 ML IV SCH ×3 (08:41→16:10)
[2018-05-01] MEDS: Phenazopyridine HCl 97.5 MG TABLET PO SCH ×3 (08:51→20:22)
[2018-05-01] MEDS: Potassium Chloride 20 MEQ TAB PO SCH ×2 (08:51→16:10)
[2018-05-01] MEDS: Famotidine 20 MG TAB PO SCH ×2 (08:51→20:26)
[2018-05-01] MEDS: Calcium Carbonate 600 MG TAB PO SCH (08:51)
[2018-05-01] MEDS ORDERED: TOLTERODINE 4 MG PO SCH ×2 (09:00→21:00)
--- NOTE | 2018-05-01 09:57 | PDOC.FM ---
- Subjective Subjective: Ms. Nguyen is feeling well this morning. She reports that having bowel movements is a chore at this time and tougher to do than when she is at home where she has all of her supplies. She denies any constipation. She is not having much dysuria at this time and abdominal pain is resolved since yesterday. - Objective MAR Reviewed: Yes Vital Signs & Weight: Vital Signs (12 hours) Temp Pulse Resp BP Pulse Ox 05/01/18 04:00 99.0 F 99 16 106/59 L 99 Weight Admit Weight 122 kg Weight 122 kg I&O: 04/30/18 05/01/18 05/02/18 06:59 06:59 06:59 Intake Total 3160 2960 Output Total 700 Balance 2460 2960 Result Diagrams: 04/30/18 04:56 05/01/18 05:25 <Daniella Perez E - Last Filed: 05/01/18 10:09> - Objective Vital Signs & Weight: Vital Signs (12 hours) Temp Pulse Resp BP Pulse Ox 05/01/18 04:00 99.0 F 99 16 106/59 L 99 Weight Admit Weight 122 kg Weight 122 kg I&O: 04/30/18 05/01/18 05/02/18 06:59 06:59 06:59 Intake Total 3160 2960 Output Total 700 Balance 2460 2960 Result Diagrams: 05/01/18 10:13 05/01/18 05:25 <Giacomo Addison A - Last Filed: 05/01/18 11:56> Phys Exam - Physical Examination Constitutional: NAD HEENT: moist MMs, sclera anicteric Neck: supple Respiratory: no wheezing, clear to auscultation bilateral Cardiovascular: RRR 2/6 systolic murmur heard best R sternal border Gastrointestinal: soft, non-tender, positive bowel sounds Musculoskeletal: no edema, pulses present Neurological: non-focal, moves all 4 limbs Psychiatric: normal affect, A&O x 3 Skin: normal turgor <Daniella Perez E - Last Filed: 05/01/18 10:09> Dx/Plan (1) Chemotherapy induced neutropenia Code(s): D70.1 - AGRANULOCYTOSIS SECONDARY TO CANCER CHEMOTHERAPY; T45.1X5A - ADVERSE EFFECT OF ANTINEOPLASTIC AND IMMUNOSUP DRUGS, INIT Status: Acute (2) Hyperbilirubinemia Code(s): E80.6 - OTHER DISORDERS OF BILIRUBIN METABOLISM Status: Acute (3) Hypothyroidism Code(s): E03.9 - HYPOTHYROIDISM, UNSPECIFIED Status: Acute QualifierTitle: Hypothyroidism type: unspecified Qualified Code(s): E03.9 - Hypothyroidism, unspecified (4) Macrocytic anemia Code(s): D53.9 - NUTRITIONAL ANEMIA, UNSPECIFIED Status: Acute (5) Squamous cell carcinoma of rectum Code(s): C20 - MALIGNANT NEOPLASM OF RECTUM Status: Acute (6) Thrombocytopenia Code(s): D69.6 - THROMBOCYTOPENIA, UNSPECIFIED Status: Acute (7) Urinary tract infection Status: Acute QualifierTitle: Urinary tract infection type: acute cystitis Hematuria presence: with hematuria Qualified Code(s): N30.01 - Acute cystitis with hematuria (8) Sepsis Code(s): A41.9 - SEPSIS, UNSPECIFIED ORGANISM Status: Acute (9) Tachycardia Code(s): R00.0 - TACHYCARDIA, UNSPECIFIED Status: Acute - Plan Plan: 47 yo F with SQCC of rectum here with neutropenic fever: 1. Chemotherapy induced neutropenia complicated by SIRS - Continue to monitor tachycardia. Strict I's and O's - Neutropenic precautions - Trend white count and obtain manual differential, pending this morning - Continue empiric antibiotic therapy with Vanc and Cefepime - Suspect urinary source if any able to be identified but unlikely one will be found - Patient without any known heart dysfunction, s/p aggressive fluid resuscitation, will titrate down slightly today - Dr. Aguirre consulted, appreciate recommendations regarding any further studies indicated to work-up infectious process - BCx, UCx negative to date 2. Tachycardia - Likely 2/2 anemia - s/p 1u pRBC, discussed risks and benefits with patient and may suggest 2nd if persist anemia today - NSR overnight, and elevated possibly 2/2 restroom use, will monitor and if still elevated order EKG - Denies chest pain, palpitations 3. Suspected urinary tract infection - Significant dysuria on presentation - Abx as above, urine culture pending and is negative to date 4. 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 Aguirre and Radha Barrera following 5. Thrombocytopenia - SCDs for now, monitor for bleeding 6. Hypothyroidism - TSH slightly low - Continue levothyroxine - Recommend repeat OP and consideration for titration 7. Hyperbilirubinemia - likely related to sepsis process - downtrending today - elevated Direct bili - will eval for further work-up 8. Urinary incontinence - continue Detrol-LA (patient's home medication) 9. Macrocytic anemia - possibly mixed etiology; pt has been started on iron supplementation outpt, will continue. - s/p 1u pRBC - Repeat CBC pending, consider additional unit if still tachy and Hgb < 8 10. Depression: continue Cymbalta PPX: SCDs, ambulation <Daniella Perez - Last Filed: 05/01/18 10:09> Attending Addendum - Attending Addendum Date/Time: 05/01/18 1155 I personally evaluated the patient and discussed the management with Dr. Perez. I agree with the History, Examination, Assessment and Plan documented above with any addition or exceptions noted below. <Giacomo Addison - Last Filed: 05/01/18 11:56>
[2018-05-01 10:40] LABS: Hemoglobin 8.3 g/dL (12.0-16.0); Mean Corpuscular Hemoglobin 33.2 pg (27.0-31.0); Mean Corpuscular Volume 97.7 fL (78.0-98.0); Mean Platelet Volume 7.6 fL (7.4-10.4); Platelet Count 26 thou/uL (130-400); RBC Distribution Width 15.5 % (11.5-14.5); Red Blood Cell (RBC) Count 2.48 mill/uL (4.20-5.40); White Blood Cell (WBC) Count 0.6 thou/uL (4.8-10.8)
[2018-05-01 10:42] LABS: Band 30 % (5-11); Lymphocytes 50 % (21-51); MDiff Complete? YES; Monocytes 15 % (0-10); Neutrophil 5 % (42-75); PLT Morphology Comment Appears Decreased; Polychromasia SLIGHT = 2-3 cells (100X) (0-2/hpf)
[2018-05-01 10:46] LABS: ALT (SGPT) 18 U/L (8-55); AST (SGOT) 17 U/L (5-34); Albumin 3.1 g/dL (3.5-5.0); Alkaline Phosphatase 68 U/L (40-150); Bilirubin, Direct 0.8 mg/dL (0.1-0.3); Bilirubin, Total 1.7 mg/dL (0.2-1.2); Protein, Total 5.8 g/dL (6.0-8.3)
[2018-05-01] MEDS ORDERED: AQUAPHOR TOP PRN (15:37)
[2018-05-01] MEDS ORDERED: CHOLESTYRAMINE TOP PRN (15:37)
[2018-05-01] MEDS ORDERED: ASPARTAME TOP PRN (15:37)
[2018-05-01] MEDS: Ferrous Sulfate 325 MG TAB PO SCH (16:10)
[2018-05-01] MEDS: DULoxetine 60 MG CAP PO SCH (20:26)
[2018-05-01] MEDS: Ubidecarenone 50 MG CAP PO SCH (20:26)
[2018-05-01] MEDS: traMADol HCl 50 MG TAB PO PRN (20:31)
[2018-05-02] MEDS: Sodium Chloride 0.9% 1,000 ML IV SCH (02:17)
[2018-05-02] MEDS: Cefepime 2 GM in Sodium Chloride 0.9% 100 ML IVPB SCH (04:18)
[2018-05-02] MEDS: Levothyroxine Sodium 88 MCG TAB PO SCH (06:05)
[2018-05-02 06:08] LABS: Anion Gap 9 mmol/L (10-20); BUN (Urea Nitrogen) 5 mg/dL (7.0-18.7); Calc. Creatinine Clearance 236 mL/min (70-130); Calcium 8.6 mg/dL (7.8-10.44); Carbon Dioxide 23 mmol/L (22-29); Chloride 112 mmol/L (98-107); Estimated GFR-MDRD Greater than 90; Glucose 94 mg/dL (70-105); Potassium 3.4 mmol/L (3.5-5.1); Sodium 141 mmol/L (136-145)
[2018-05-02 06:12] LABS: Bilirubin, Direct 0.5 mg/dL (0.1-0.3); Bilirubin, Total 1.1 mg/dL (0.2-1.2)
[2018-05-02 06:15] LABS: White Blood Cell (WBC) Count 0.9 thou/uL (4.8-10.8)
[2018-05-02 06:23] LABS: Band 36 % (5-11); Hemoglobin 7.7 g/dL (12.0-16.0); Lymphocytes 26 % (21-51); MDiff Complete? YES; Mean Corpuscular HGB CONC 34.4 g/dL (32.0-36.0); Mean Corpuscular Hemoglobin 33.1 pg (27.0-31.0); Mean Corpuscular Volume 96.3 fL (78.0-98.0); Monocytes 14 % (0-10); Neutrophil 24 % (42-75); PLT Morphology Comment Appears Decreased; Platelet Count 30 thou/uL (130-400); RBC Distribution Width 15.6 % (11.5-14.5); Red Blood Cell (RBC) Count 2.32 mill/uL (4.20-5.40)
--- NOTE | 2018-05-02 07:00 | PDOC.FM ---
- Subjective Subjective: Patient doing well this morning with no complaints. No adverse events overnight. - Objective MAR Reviewed: Yes Vital Signs & Weight: Vital Signs (12 hours) Temp Pulse Resp BP Pulse Ox 05/02/18 04:16 99 F 18 142/58 H 99 05/02/18 00:00 98.6 F 106 H 14 111/53 L 94 L 05/01/18 20:25 99 F 93 16 98 05/01/18 20:20 99 F 93 16 118/63 98 Weight Admit Weight 122 kg Weight 130.544 kg I&O: 05/01/18 05/02/18 05/03/18 06:59 06:59 06:59 Intake Total 2960 1940 Output Total 80 Balance 2960 1860 Result Diagrams: 05/02/18 05:45 05/02/18 05:45 <Mallika Manzano - Last Filed: 05/02/18 10:31> - Objective Vital Signs & Weight: Vital Signs (12 hours) Temp Pulse Resp BP Pulse Ox 05/02/18 09:26 97.9 F 90 18 109/59 L 95 05/02/18 04:16 99 F 18 142/58 H 99 05/02/18 00:00 98.6 F 106 H 14 111/53 L 94 L Weight Admit Weight 122 kg Weight 130.544 kg I&O: 05/01/18 05/02/18 05/03/18 06:59 06:59 06:59 Intake Total 2960 1940 Output Total 80 Balance 2960 1860 Result Diagrams: 05/02/18 05:45 05/02/18 05:45 <Braden Dhillon - Last Filed: 05/02/18 10:47> Phys Exam - Physical Examination Constitutional: NAD Respiratory: clear to auscultation bilateral Cardiovascular: RRR Gastrointestinal: soft, non-tender, no distention Musculoskeletal: no edema, pulses present Neurological: moves all 4 limbs Psychiatric: normal affect Skin: no rash <Mallika Manzano - Last Filed: 05/02/18 10:31> Dx/Plan (1) Chemotherapy induced neutropenia Code(s): D70.1 - AGRANULOCYTOSIS SECONDARY TO CANCER CHEMOTHERAPY; T45.1X5A - ADVERSE EFFECT OF ANTINEOPLASTIC AND IMMUNOSUP DRUGS, INIT Status: Acute Plan: Neutropenic fever has resolved. No source identified. ANC 540 today. Blood and urine cultures negative after [address] Aguirre who is agreeable to discharge with close outpatient follow-up. Will discharge with oral antibiotics. (2) Thrombocytopenia Code(s): D69.6 - THROMBOCYTOPENIA, UNSPECIFIED Status: Acute Plan: pancytopenia from chemotherapy. No episodes of bleeding. (3) Tachycardia Code(s): R00.0 - TACHYCARDIA, UNSPECIFIED Status: Resolved Plan: Resolved. Continue to monitor. (4) Squamous cell carcinoma of rectum Code(s): C20 - MALIGNANT NEOPLASM OF RECTUM Status: Chronic Plan: s/p chemo. Pt in the middle of radiation therapy. (5) Hypothyroidism Code(s): E03.9 - HYPOTHYROIDISM, UNSPECIFIED Status: Chronic QualifierTitle: Hypothyroidism type: unspecified Qualified Code(s): E03.9 - Hypothyroidism, unspecified Plan: Continue home medication. - Plan Plan: Disposition: stable for discharge. <Mallika Manzano - Last Filed: 05/02/18 10:31> Attending Addendum - Attending Addendum Date/Time: 05/02/18 1046 I personally evaluated the patient and discussed the management with Dr. Manzano I agree with the History, Examination, Assessment and Plan documented above with any addition or exceptions noted below. Cultures negative will discuss further inpatient plans with Oncology regard neutropenic fever. <Braden Dhillon - Last Filed: 05/02/18 10:47>
[2018-05-02] MEDS: Diphenoxylate HCl/Atropine Tablet PO PRN (08:15)
[2018-05-02] MEDS: Ferrous Sulfate 325 MG TAB PO SCH (09:28)
[2018-05-02] MEDS: Famotidine 20 MG TAB PO SCH (09:29)
[2018-05-02] MEDS: Calcium Carbonate 600 MG TAB PO SCH (09:29)
[2018-05-02] MEDS: Phenazopyridine HCl 97.5 MG TABLET PO SCH (09:29)
[2018-05-02 09:50] LABS: Vancomycin, Trough 11.3 ug/mL
[2018-05-02 13:41] VITALS: BP 121/68; TEMP 98.4
--- NOTE | 2018-05-02 15:19 | EKG ---
Test Reason : Blood Pressure : / mmHG Vent. Rate : 110 BPM Atrial Rate : 110 BPM P-R Int : 132 ms QRS Dur : 084 ms QT Int : 312 ms P-R-T Axes : 045 016 -04 degrees QTc Int : 422 ms Sinus tachycardia Nonspecific T wave abnormality Abnormal ECG Confirmed by BERENICE JORDAN MD ([id number]), newspaper editor managing BAMBI VAZQUEZ ([id number]) on 05/02/2018 3:19:37 PM Referred By: Confirmed By:BERENICE JORDAN MD
--- NOTE | 2018-05-02 17:55 | DIS-2 ---
DATE OF ADMISSION: 04/29/2018 DATE OF DISCHARGE: 05/02/2018 RESIDENT: Mallika Manzano MD, PGY-2 ADMITTING ATTENDING: Prema Galindo MD DISCHARGE ATTENDING: Braden Dhillon MD PROCEDURES: 1. Transfusion of 1 unit of packed red blood cells. 2. Chest x-ray that showed no acute abnormality. PRIMARY DIAGNOSES: 1. Neutropenic fever. 2. Sepsis of unknown source. 3. Squamous cell carcinoma of the rectum, status post incomplete chemoradiation. 4. Pancytopenia. SECONDARY DIAGNOSES: 1. Hypothyroidism. 2. Urinary incontinence and dysuria. 3. Macrocytic anemia. 4. Depression. 5. Tachycardia. DISCHARGE MEDICATIONS: 1. Levofloxacin 500 mg p.o. daily. 2. Melatonin 10 mg p.o. at bedtime. 3. Lactobacillus probiotic 1 capsule p.o. daily. 4. Calcium carbonate 600 mg p.o. daily. 5. Vitamin D3, 5000 units p.o. q.a.m. 6. Cymbalta 60 mg p.o. at bedtime. 7. Synthroid 88 mcg p.o. q.a.m. 8. Detrol LA 4 mg p.o. at bedtime. 9. Multivitamin 1 tab p.o. at bedtime. 10. Ferrous sulfate 325 mg p.o. b.i.d. DISCONTINUED MEDICATIONS: None. HOSPITAL COURSE: The patient is a 47-year-old -[place] female with recent diagnosis of squam ous cell carcinoma of the rectum with recent chemo and radiation, who presented with fever, diarrhea, dysuria, and general malaise. The patient had a temperature of 101 at home and was febrile with a t emperature of 102.4 in the emergency department. In the emergency department, the patient received 3 liters of fluids and was started on vancomycin and cefepime. She was admitted to telemetry and her antibiotics were continued. The patient was placed on neutropenic precautions and Oncology was consu lted. Oncology recommended continued treatment with broad-spectrum antibiotics until cultures came b ack and the patient remained afebrile for 48 hours. The patient did continue to be tachycardic despi te aggressive fluid resuscitation; however, a component of this was thought to be chronic in nature. At discharge, her heart rate remained in the low 90s. The patient was asymptomatic. The patient wa s discharged with oral antibiotics and she has close outpatient followup and in fact has an appointme nt for radiation on 05/04/2018. Discharge was discussed with Dr. Aguirre who also agreed with plan. DISPOSITION: Stable. DISCHARGE INSTRUCTIONS: 1. Location: Home. 2. Diet: Regular. 3. Activity: Ad shannan. FOLLOWUP: The patient is to follow up with Oncology and Radiation Oncology on 05/04/2018 and she is to follow up with Dr. Heard in the next 7-10 days.
== END 2018-05-02 13:30 | disposition home or self-care (01) | DRG 871 ==
LOC: ERS 12:02 → 2NO 14:34
PROVIDERS: ADMIT Family Medicine; ATTEND Family Medicine
PROC: 30233N1 Transfusion of Nonautologous Red Blood Cells into Peripheral Vein, Percutaneous Approach (ICD-10-PCS; principal; 2018-04-30)
DX: A41.9 Sepsis, unspecified organism (principal); D61.810 Antineoplastic chemotherapy induced pancytopenia; C20 Malignant neoplasm of rectum; N30.01 Acute cystitis with hematuria; Z68.42 Body mass index [BMI] 45.0-49.9, adult; D61.818 Other pancytopenia; D70.1 Agranulocytosis secondary to cancer chemotherapy; D70.9 Neutropenia, unspecified; R50.81 Fever presenting with conditions classified elsewhere; E03.9 Hypothyroidism, unspecified; R30.0 Dysuria; R32 Unspecified urinary incontinence; D53.9 Nutritional anemia, unspecified; F32.9 Major depressive disorder, single episode, unspecified; T45.1X5A Adverse effect of antineoplastic and immunosuppressive drugs, initial encounter; Y92.9 Unspecified place or not applicable; E66.9 Obesity, unspecified
CPT/HCPCS: 36415; 36430; 71045; 80048; 80053; 80202; 81003; 81015; 82247; 83605; 83880; 84443; 85007; 85025; 85027; 85060; 86850; 86900; 86901; 87040; 87086; 93005; 96361; 96365; 96367; 96375; A4216; J0692; J2270; J2550; J3370; J7050; P9016

== ENCOUNTER 2018-06-26 13:13 | Outpatient (CLI) | payer OTHER | END 2018-06-26 13:14 | disposition home or self-care (01) | LOC: BICRAD 13:13 | PROVIDERS: ATTEND Family Medicine | DX: M15.0 Primary generalized (osteo)arthritis (principal); M19.011 Primary osteoarthritis, right shoulder ==

== ENCOUNTER 2018-07-24 07:50 | Outpatient (CLI) | payer OTHER ==
--- NOTE | 2018-07-24 10:19 | PET ---
RADIONUCLIDE PET SCAN WITH CT ATTENUATION CORRECTION AND SPECT IMAGING: HISTORY: Colon cancer. Restaging. COMPARISON: 03/12/18. FINDINGS: Physiologic uptake of radiotracer is present throughout the enteric system and along each urinary tra ct. No abnormal areas of uptake are apparent within the liver or abdomen. At the inferior tip of the right scapular body, uptake is noted at 2.0 maximum SUV QCLR This is below the threshold for neoplasm diagnosis and is unlikely to be a solitary met. Nondiagnostic CT attenuation correction images again show a small calcification at the superior pole right kidney. The gallbladder is surgically absent. IMPRESSION: 1. No scintigraphic evidence of metastatic disease. 2. Right renal stone and other chronic-type findings are stable. POS: HASEEB
== END 2018-07-24 07:51 | disposition home or self-care (01) ==
LOC: PET 07:50
PROVIDERS: ATTEND Internal Medicine Hematology & Oncology
DX: C18.9 Malignant neoplasm of colon, unspecified (principal); N20.0 Calculus of kidney
CPT/HCPCS: 78815; A9552

== ENCOUNTER 2019-04-30 12:55 | Outpatient (CLI) | payer OTHER ==
--- NOTE | 2019-04-30 14:31 | MMO ---
Bilateral MAMMO Bilat Screen [facility]. CLINICAL HISTORY: Patient is 48 years old and is seen for screening. The patient has the following family history of breast cancer: maternal aunt, at age 38. The patient has a history of colon cancer in February,. VIEWS: The views performed were: bilateral craniocaudal with tomosynthesis and bilateral mediolateral oblique with tomosynthesis. FILMS COMPARED: The present examination has been compared to prior imaging studies performed at [facility] on 12/03/2013, 12/07/2014, 12/11/2015 and 03/05/2018. MAMMOGRAM FINDINGS: There are scattered fibroglandular densities. There are no suspicious masses, suspicious calcifications, or new areas of architectural distortion. IMPRESSION: THERE IS NO MAMMOGRAPHIC EVIDENCE OF MALIGNANCY. A ROUTINE FOLLOW-UP MAMMOGRAM IN 1 YEAR IS RECOMMENDED. THE RESULTS OF THIS EXAM WERE SENT TO THE PATIENT. ACR BI-RADS Category 1 - Negative MAMMOGRAPHY NOTE: 1. A negative mammogram report should not delay a biopsy if a dominant of clinically suspicious mass is present. 2. Approximately 10% to 15% of breast cancers are not detected by mammography. 3. Adenosis and dense breasts may obscure an underlying neoplasm.
== END 2019-04-30 12:56 | disposition home or self-care (01) ==
LOC: BICMAMMO 12:55
PROVIDERS: ATTEND Family Medicine
DX: Z12.31 Encounter for screening mammogram for malignant neoplasm of breast (principal); Z80.3 Family history of malignant neoplasm of breast; Z85.038 Personal history of other malignant neoplasm of large intestine
CPT/HCPCS: 77063; 77067

== ENCOUNTER 2020-05-23 14:07 | Outpatient (CLI) | payer OTHER ==
--- NOTE | 2020-05-23 14:51 | MMO ---
Bilateral MAMMO Bilat Screen [facility]. CLINICAL HISTORY: Patient is 49 years old and is seen for screening. The patient has the following family history of breast cancer: maternal aunt, at age 38. The patient has a history of colon cancer in February,. VIEWS: The views performed were: bilateral craniocaudal with tomosynthesis and bilateral mediolateral oblique with tomosynthesis. FILMS COMPARED: The present examination has been compared to prior imaging studies performed at [facility] on 12/07/2014, 12/11/2015, 03/05/2018 and 04/30/2019. This study has been interpreted with the assistance of computer-aided detection. MAMMOGRAM FINDINGS: There are scattered fibroglandular densities. There are no suspicious masses, suspicious calcifications, or new areas of architectural distortion. IMPRESSION: THERE IS NO MAMMOGRAPHIC EVIDENCE OF MALIGNANCY. A ROUTINE FOLLOW-UP MAMMOGRAM IN 1 YEAR IS RECOMMENDED. THE RESULTS OF THIS EXAM WERE SENT TO THE PATIENT. ACR BI-RADS Category 1 - Negative MAMMOGRAPHY NOTE: 1. A negative mammogram report should not delay a biopsy if a dominant of clinically suspicious mass is present. 2. Approximately 10% to 15% of breast cancers are not detected by mammography. 3. Adenosis and dense breasts may obscure an underlying neoplasm. Reported by: BREANA DAVENPORT MD Electonically Signed: [id number]
== END 2020-05-23 14:08 | disposition home or self-care (01) ==
LOC: BICMAMMO 14:07
PROVIDERS: ATTEND Family Medicine
DX: Z12.31 Encounter for screening mammogram for malignant neoplasm of breast (principal); Z85.038 Personal history of other malignant neoplasm of large intestine; Z80.3 Family history of malignant neoplasm of breast
CPT/HCPCS: 77063; 77067

== ENCOUNTER 2020-08-31 07:41 | Day surgery (SDC) | payer OTHER ==
[2020-08-30 09:51] VITALS: BMI 51.2
--- NOTE | 2020-08-31 09:58 | OP ---
DATE OF PROCEDURE: 08/31/2020 BOWLING OR SKATING FRONT DESK CLERK SURGEON: None. PROCEDURE PERFORMED: Colonoscopy with biopsies. INDICATIONS: 1. History of rectal squamous cell carcinoma, status post chemotherapy and radiation in 2018. 2. Last colonoscopy in August 2018 demonstrated no residual mass. A tubular adenoma was resected and rectal AVMs were visualized. 3. Mild iron deficiency anemia. 4. Mucus and stool. MEDICATIONS: See Anesthesia record. FINDINGS: After discussion of the risks, benefits, and alternatives of the procedure, informed consent was obtained and witnessed. Pre-endoscopic cardiopulmonary examination was satisfactory. Time-out was performed before sedation was achieved. Sedation was achieved with Anesthesia assistance in the endoscopy unit. Digital rectal exam was performed, which was unremarkable. A Pentax adult colonoscope was inserted into the anus. The rectum was examined initially. There is some mild diffuse proctitis involving the distal 5 to 10 cm of the rectal mucosa. This is characterized by some edema and friability as well as several small arteriovenous malformations overall and has an appearance consistent with chronic radiation proctitis. There were no ulcerations visualized. There was no residual mass or recurrent mass. No significant hemorrhoids on retroflexion. Biopsies were obtained from the rectal mucosa for histology. The colonoscope was passed forward to the cecum in the usual fashion. The cecal base was identified by the appendiceal orifice as well as the ileocecal valve. The terminal ileum was not intubated. The colonoscope was slowly withdrawn in a gradual and circumferential manner with careful examination of the entire colonic mucosa. The quality of the prep was good. The remainder of the colonic mucosa appears normal throughout. There were no polyps, mass, lesions, or other abnormalities visualized aside from the aforementioned proctitis. The colonoscope was completely withdrawn and the patient allowed to recover. The patient tolerated the procedure well. There were no immediate postprocedure complications. IMPRESSION: 1. Mild diffuse proctitis with several small arteriovenous malformations, involving the distal 5 to 10 cm of rectal mucosa, appearance likely representing chronic radiation proctitis, biopsied. 2. No evidence of recurrent or residual rectal mass. 3. Otherwise, normal colonoscopy to the cecum. RECOMMENDATIONS: 1. Follow up pathology on the biopsies. 2. Repeat colonoscopy for surveillance in 3 years. 3. We will give the patient Canasa suppositories, 1000 mg per rectum every night x14 days. As the patient has some symptomatic benefit from this, this can be repeated. 4. Follow up in the GI Clinic as needed. Job ID: [id number]
[2020-08-31] MEDS ORDERED: PROPOFOL 200 MG/20 ML VIAL ONE (10:32)
== END 2020-08-31 10:20 | disposition home or self-care (01) ==
LOC: SDC 07:41
PROVIDERS: ATTEND Internal Medicine
PROC: 0DBP8ZX Excision of Rectum, Via Natural or Artificial Opening Endoscopic, Diagnostic (ICD-10-PCS; principal; 2020-08-31)
DX: D12.8 Benign neoplasm of rectum (principal); K62.89 Other specified diseases of anus and rectum; Z85.038 Personal history of other malignant neoplasm of large intestine; Z79.899 Other long term (current) drug therapy; Z88.0 Allergy status to penicillin; Z88.5 Allergy status to narcotic agent; Z88.6 Allergy status to analgesic agent; Z91.040 Latex allergy status
CPT/HCPCS: 88305; J2704

== ENCOUNTER 2021-12-04 15:07 | Outpatient (CLI) | payer BC | END 2021-12-04 15:08 | disposition home or self-care (01) | LOC: BICMAMMO 15:07 | PROVIDERS: ATTEND Family Medicine | DX: Z12.31 Encounter for screening mammogram for malignant neoplasm of breast (principal); Z80.3 Family history of malignant neoplasm of breast; Z85.038 Personal history of other malignant neoplasm of large intestine | CPT/HCPCS: 77063; 77067 ==

== ENCOUNTER 2023-10-06 06:23 | Day surgery (SDC) | payer BC ==
[2023-10-03 11:29] VITALS: BMI 48.6
[2023-10-06] MEDS ORDERED: Midazolam HCl 2 mg/2 ml Vial ONE (07:40)
[2023-10-06] MEDS ORDERED: PROPOFOL 60 ML ONE (07:51)
== END 2023-10-06 08:55 | disposition home or self-care (01) ==
LOC: SDC 06:23
PROVIDERS: ATTEND Internal Medicine
PROC: 0DJD8ZZ Inspection of Lower Intestinal Tract, Via Natural or Artificial Opening Endoscopic (ICD-10-PCS; principal; 2023-10-06)
DX: Z12.11 Encounter for screening for malignant neoplasm of colon (principal); C18.9 Malignant neoplasm of colon, unspecified; Q27.33 Arteriovenous malformation of digestive system vessel; E03.9 Hypothyroidism, unspecified; F32.A Depression, unspecified; I10 Essential (primary) hypertension; E78.2 Mixed hyperlipidemia; Z98.890 Other specified postprocedural states; Z90.49 Acquired absence of other specified parts of digestive tract; Z90.710 Acquired absence of both cervix and uterus; Z79.890 Hormone replacement therapy; Z79.899 Other long term (current) drug therapy
CPT/HCPCS: J2250; J2704